=== PATIENT | male | born 1990 | race Caucasian/White ===

== ENCOUNTER 2017-05-16 17:49 | Emergency (ER) | payer BC ==
[2017-05-16 18:11] VITALS: BP 156/77; PULSE 86; RESP 18; TEMP 97.7
--- NOTE | 2017-05-16 18:25 | XR ---
EXAMINATION TYPE: XR foot complete LT DATE OF EXAM: 05/16/2017 COMPARISON: NONE HISTORY: Pain TECHNIQUE: 3 views FINDINGS: I see no fracture nor dislocation. Metatarsals appear intact. There are plantar and Stiven s calcaneal spurs. IMPRESSION: Calcaneal spurring. No fracture.
--- NOTE | 2017-05-16 18:42 | ED ---
Lower Extremity Injury HPI - General Chief Complaint: Extremity Injury, Lower Stated Complaint: left foot injury Time Seen by Provider: 05/16/17 18:22 Source: patient Mode of arrival: ambulatory Limitations: no limitations - History of Present Illness Initial Comments: 27-year-old male patient presents to emergency department today for evaluation of left foot pain. Patient states that around 11 AM this morning he was on a trailer when he actually stepped through a broken portion of the trailer injuring his left foot. Patient states that he has increased pain with ambulation. He denies any numbness or tingling to the foot. He denies any limitations with range of motion to the ankle or foot. Patient does have abrasions to the right argueta however states that he is not having pain in that area. Patient denies falling, hitting his head, or losing consciousness. Patient denies any headache, neck pain, back pain, chest pain, shortness of breath, dizziness, weakness, abdominal pain, nausea, vomiting, or difficulties with bowel movements or urination. Patient's tetanus is updated 4 years ago. - Related Data Allergies Allergy/AdvReac Type Severity Reaction Status Date / Time diphenhydramine Allergy Unknown Verified 05/16/17 18:05 [From [place]] Review of Systems ROS Statement: Those systems with pertinent positive or pertinent negative responses have been documented in the HPI. ROS Other: All systems not noted in ROS Statement are negative. Past Medical History Past Medical History: No Reported History History of Any Multi-Drug Resistant Organisms: None Reported Past Surgical History: No Surgical Hx Reported Past Psychological History: No Psychological Hx Reported Smoking Status: Never smoker Past Alcohol Use History: None Reported Past Drug Use History: None Reported General Exam Limitations: no limitations General appearance: alert, in no apparent distress Head exam: Present: atraumatic, normocephalic, normal inspection Eye exam: Present: normal appearance, PERRL, EOMI. Absent: scleral icterus, conjunctival injection, periorbital swelling ENT exam: Present: normal exam, mucous membranes moist Neck exam: Present: normal inspection, full ROM, other (Nontender, no step-off, no deformity to firm midline palpation of the posterior cervical spine. Full range of motion without pain or limitation.). Absent: tenderness, meningismus, lymphadenopathy Respiratory exam: Present: normal lung sounds bilaterally. Absent: respiratory distress, wheezes, rales, rhonchi, stridor Cardiovascular Exam: Present: regular rate, normal rhythm, normal heart sounds. Absent: systolic murmur, diastolic murmur, rubs, gallop, clicks GI/Abdominal exam: Present: soft, normal bowel sounds. Absent: distended, tenderness, guarding, rebound, rigid Extremities exam: Present: normal inspection, full ROM, normal capillary refill. Absent: tenderness, pedal edema, joint swelling, calf tenderness Back exam: Present: normal inspection, full ROM, other (Nontender, no step-off, no deformity to firm midline palpation of the thoracic and lumbar vertebrae. Full range of motion without pain or limitation.). Absent: tenderness, CVA tenderness (R), CVA tenderness (L), vertebral tenderness Neurological exam: Present: alert, oriented X3, CN II-XII intact Psychiatric exam: Present: normal affect, normal mood Skin exam: Present: warm, dry, intact, normal color. Absent: rash Course Vital Signs 05/16/17 18:06 Temperature 97.7 F Pulse Rate 86 Respiratory 18 Rate Blood Pressure 156/77 O2 Sat by Pulse 99 Oximetry Medical Decision Making - Medical Decision Making 27 old male patient presented for evaluation of left foot pain. Patient is complaining of pain with palpation over the dorsal aspect over the metatarsals. X-ray was obtained and impression by Dr. Cleveland reports no acute fracture nor dislocation. Did discuss possibility of an occult Lisfranc fracture with the patient. Did instruct him to follow up for repeat x-ray in 7-10 days if he continues to have any pain or issues. Carlin wrap applied to left foot. Did instruct him to follow-up with his primary care physician for recheck in 1-2 days. Instructed him to return immediately for any new, worsening, or concerning symptoms. Patient verbalizes understanding and agrees with this plan. - Radiology Data Radiology results: report reviewed, image reviewed 3 views of the left foot were obtained, shows no fracture or dislocation. Metatarsals appear intact. There are plantar and Achilles calcaneal spurs. Impression by Dr. Cleveland shows calcaneal spurring. No fracture. Disposition Clinical Impression: Foot sprain, Abrasion, right lower leg, initial encounter Disposition: HOME SELF-CARE Condition: Good Instructions: Foot Sprain (ED), Abrasion (ED) Additional Instructions: Keep wounds clean and dry. Wear Carlin wrap for comfort. Follow up for repeat x- ray in 7-10 days of pain symptoms persist. Rest, ice, and elevate the extremity. Apply ice 20 minutes at a times at least 4 times daily. Return immediately for any new, worsening, or concerning symptoms. Referrals: Jered Stringer MD [Primary Care Provider] - 1-2 days Marcos Becker DO [Doctor of Osteopathic Medicine] - 1-2 days Time of Disposition: 18:42
== END 2017-05-16 19:01 | disposition home or self-care (01) ==
LOC: EC 17:49
DX: S93.602A Unspecified sprain of left foot, initial encounter (principal); S80.811A Abrasion, right lower leg, initial encounter; M77.32 Calcaneal spur, left foot; Z88.8 Allergy status to other drugs, medicaments and biological substances; W17.2XXA Fall into hole, initial encounter
CPT/HCPCS: 99283

== ENCOUNTER → 2023-09-24 | Outpatient (CLI) | payer BC ==
[2023-09-24 15:06] LABS: Basophils # (A) 0.07 X 10*3/uL (0.00-0.10); Basophils % (A) 0.9 %; Eosinophils # (A) 0.18 X 10*3/uL (0.04-0.35); Eosinophils % (A) 2.3 %; HCT 44.4 % (39.6-50.0); HGB 14.4 g/dL (13.0-17.0); Lymphocytes # (A) 1.53 X 10*3/uL (0.90-5.00); Lymphocytes % (A) 19.4 %; MCH 28.5 pg (27.0-32.0); MCHC 32.4 g/dL (32.0-37.0); MCV 87.9 FL (80.0-97.0); Monocytes # (A) 0.53 X 10*3/uL (0.20-1.00); Monocytes % (A) 6.7 %; NRBC Per 100 WBC 0 X 10*3/uL (0.00-0.01); Neutrophils # (A) 5.45 X 10*3/uL (1.80-7.70); Neutrophils % (A) 69.2 %; Platelet Count 259 X 10*3/uL (140-440); RBC 5.05 X 10*6/uL (4.40-5.60); RDW 13.5 % (11.5-14.5); WBC 7.88 X 10*3/uL (4.50-10.00)
[2023-09-24 15:44] LABS: ALT 64 U/L (10-49); AST 35 U/L (14-35); Albumin 4.3 g/dL (3.8-4.9); Albumin/Globulin Ratio 1.95 Ratio (1.60-3.17); Alkaline Phosphatase 67 U/L (41-126); BUN/Creat Ratio 14.82 Ratio (12.00-20.00); Blood Urea Nitrogen 16.3 mg/dL (9.0-27.0); Calcium 8.4 mg/dL (8.7-10.3); Carbon Dioxide 22.6 mmol/L (21.6-31.8); Chloride 104 mmol/L (96-109); Globulin 2.2 g/dL (1.6-3.3); Glucose 113 mg/dL (70-110); Potassium 4.9 mmol/L (3.5-5.5); Sodium 139 mmol/L (135-145); Total Bilirubin 0.4 mg/dL (0.3-1.2); Total Protein 6.5 g/dL (6.2-8.2)
[2023-09-24 16:14] LABS: Prealbumin 21.1 mg/dL (18.0-42.0)
== END | disposition home or self-care (01) ==
LOC: LABWHC1 11:15
PROVIDERS: ATTEND Internal Medicine
DX: Z00.01 Encounter for general adult medical examination with abnormal findings (principal); E55.9 Vitamin D deficiency, unspecified; R73.9 Hyperglycemia, unspecified; R53.83 Other fatigue
CPT/HCPCS: 36415; 80053; 82306; 83036; 84134; 84443; 85025

== ENCOUNTER 2023-12-14 00:41 | Emergency (ER) | payer BC ==
[2023-12-14 01:12] VITALS: TEMP 97.7
--- NOTE | 2023-12-14 02:29 | ED ---
ENT HPI - General Chief complaint: ENT Stated complaint: Left Ear Ache Time Seen by Provider: 12/14/23 01:41 Source: patient Mode of arrival: ambulatory Limitations: no limitations - History of Present Illness Initial comments: 33-year-old male presenting to the ED with a chief complaint of left ear pain. Patient states today has had some intermittent pain of his left ear however tonight around 9 started to become worse and more constant in nature. Some associated muffled hearing as well. Also does note some associated sore throat with this as well. No chest pain shortness of breath. No fever or chills. No other complaints at this time. - Related Data Previous Rx's Medication Instructions Recorded Acetaminophen Tab [Tylenol] 500 mg PO Q6H PRN #30 tablet 12/14/23 Amoxic-Pot Clav 875-125Mg 1 tab PO Q12HR 7 Days #14 tab 12/14/23 [Augmentin 875-125] Ibuprofen [Motrin] 600 mg PO Q8HR PRN #30 tab 12/14/23 Allergies Allergy/AdvReac Type Severity Reaction Status Date / Time diphenhydramine Allergy Unknown Verified 12/14/23 01:09 [From Benadryl] Review of Systems ROS Statement: Those systems with pertinent positive or pertinent negative responses have been documented in the HPI. ROS Other: All systems not noted in ROS Statement are negative. Past Medical History Past Medical History: No Reported History History of Any Multi-Drug Resistant Organisms: None Reported Past Surgical History: No Surgical Hx Reported Past Psychological History: No Psychological Hx Reported Smoking Status: Never smoker Past Alcohol Use History: None Reported Past Drug Use History: None Reported General Exam Limitations: no limitations General appearance: alert, in no apparent distress ENT exam: Present: other (Left TM intact, erythematous, nonbulging. Some erythema of the outer ear as well. No mastoid process tenderness to palpation or overlying warmth, erythema, edema, tenderness to palpation.) Neck exam: Present: normal inspection Respiratory exam: Present: normal lung sounds bilaterally Cardiovascular Exam: Present: regular rate, normal rhythm GI/Abdominal exam: Present: soft Neurological exam: Present: alert, oriented X3 Skin exam: Present: warm, dry Course Vital Signs 12/14/23 01:07 Temperature 97.7 F Pulse Rate 69 Respiratory 18 Rate Blood Pressure 167/77 O2 Sat by Pulse 95 Oximetry Medical Decision Making - Medical Decision Making Was pt. sent in by a medical professional or institution (EVELYNE Callaway, [employer] READING TEACHER, urgent care, hospital, or [facility]...) When possible be specific @ -No Did you speak to anyone other than the patient for history (EMS, parent, family, police, friend...)? What history was obtained from this source @ -No Did you review nursing and triage notes (agree or disagree)? Why? @ -I reviewed and agree with nursing and triage notes Were old charts reviewed (outside hosp., previous admission, EMS record, old EKG, old radiological studies, urgent care reports/EKG's, [facility] records)? Report findings @ -No old charts were reviewed Differential Diagnosis (chest pain, altered mental status, abdominal pain women, abdominal pain men, vaginal bleeding, weakness, fever, dyspnea, syncope, headache, dizziness, GI bleed, back pain, seizure, CVA, palpatations, mental health, musculoskeletal)? @ -Otitis media, otitis externa, malignant otitis externa. This not meant to be an all-inclusive list. EKG interpreted by me (3pts min.). @ -None X-rays interpreted by me (1pt min.). @ -None done CT interpreted by me (1pt min.). @ -None done U/S interpreted by me (1pt. min.). @ -None done What testing was considered but not performed or refused? (CT, X-rays, U/S, labs )? Why? @ -None What meds were considered but not given or refused? Why? @ -None Did you discuss the management of the patient with other professionals (professionals i.e. EVEYLNE Callaway, [employer], lab, RT, psych nurse, social work lecturer, rotary envelope machine operator, teacher, chemical instrumentation officer, caser up)? Give summary @ -No Was smoking cessation discussed for >3mins.? @ -No Was critical care preformed (if so, how long)? @ -No Were there social determinants of health that impacted care today? How? (Homelessness, low income, unemployed, alcoholism, drug addiction, transportation, low edu. Level, literacy, decrease access to med. care, [facility], rehab)? @ -No Was there de-escalation of care discussed even if they declined (Discuss DNR or withdrawal of care, Hospice)? DNR status @ -No What co-morbidities impacted this encounter? (DM, HTN, Smoking, COPD, CAD, Cancer, CVA, ARF, Chemo, Hep., AIDS, mental health diagnosis, sleep apnea, morbid obesity)? @ -None Was patient admitted / discharged? Hospital course, mention meds given and route, prescriptions, significant lab abnormalities, going to OR and other pertinent info. @ -Discharge 53-year-old male presented to the ED with complaints of left ear pain with some associated muffled hearing for 1 day. Serology panel unremarkable. On examination left TM intact erythematous, nonbulging. Symptoms likely viral in nature however patient would like antibiotic coverage. Provided prescription for Augmentin. Discharged home in stable condition with instructions to follow- up with his PCP. Discussed return precautions with patient who verbalized agreement. Undiagnosed new problem with uncertain prognosis? @ -No Drug Therapy requiring intensive monitoring for toxicity (Heparin, Nitro, Insulin, Cardizem)? @ -No Were any procedures done? @ -No Diagnosis/symptom? @ -Otitis media Acute, or Chronic, or Acute on Chronic? @ -Acute Uncomplicated (without systemic symptoms) or Complicated (systemic symptoms)? @ -Uncomplicated Side effects of treatment? @ -No Exacerbation, Progression, or Severe Exacerbation? @ -No Poses a threat to life or bodily function? How? (Chest pain, USA, ID, pneumonia, PE, COPD, DKA, ARF, appy, cholecystitis, CVA, Diverticulitis, Homicidal, Suicidal, threat to staff... and all critical care pts) @ -No - Lab Data Lab Results 12/14/23 Range/Units 02:08 Influenza Type A (PCR) Not Detected (Not Detectd) Influenza Type B (PCR) Not Detected (Not Detectd) RSV (PCR) Not Detected (Not Detectd) SARS-CoV-2 (PCR) Not Detected (Not Detectd) Disposition Clinical Impression: Left ear pain Disposition: HOME SELF-CARE Condition: Good Additional Instructions: Please return to the Emergency Department if symptoms worsen or any other concerns. Please follow-up with your PCP. Prescriptions: Amoxic-Pot Clav 875-125Mg [Augmentin 875-125] 1 tab PO Q12HR 7 Days #14 tab Ibuprofen [Motrin] 600 mg PO Q8HR PRN #30 tab PRN Reason: Pain Acetaminophen Tab [Tylenol] 500 mg PO Q6H PRN #30 tablet PRN Reason: Pain Is patient prescribed a controlled substance at d/c from ED?: No Referrals: Mary Hurley MD [Primary Care Provider] - 1-2 days Time of Disposition: 03:35
[2023-12-14] MEDS: KETOROLAC 15 MG/ML 1 ML VIAL IM STA (02:48)
[2023-12-14] MEDS: ACETAMINOPHEN TAB 500 MG TAB PO STA (02:48)
[2023-12-14] MEDS: AMOXIC-POT CLAV 875MG STARTER PACK 2 TAB BTL PO STA (03:35)
[2023-12-14 03:54] VITALS: BP 172/77; PULSE 75; RESP 20
== END 2023-12-14 05:36 | disposition home or self-care (01) ==
LOC: EC 00:41
DX: H92.02 Otalgia, left ear (principal)
CPT/HCPCS: 99283; 87636; 96372; J1885

== ENCOUNTER → 2025-02-14 | Outpatient (CLI) | payer BC ==
[2025-02-14 10:20] LABS: Basophils # (A) 0.06 10*3/uL (0.00-0.10); Basophils % (A) 0.9 %; Eosinophils # (A) 0.14 10*3/uL (0.04-0.35); HCT 45.2 % (39.6-50.0); Lymphocytes # (A) 1.39 10*3/uL (0.90-5.00); Lymphocytes % (A) 20.2 %; MCH 30.2 pg (27.0-32.0); MCHC 33.2 g/dL (32.0-37.0); MCV 90.9 fL (80.0-97.0); Mean Platelet Volume 10.2 fL (9.5-12.2); Monocytes # (A) 0.43 10*3/uL (0.20-1.00); Monocytes % (A) 6.2 %; Neutrophils # (A) 4.83 10*3/uL (1.80-7.70); Neutrophils % (A) 70.1 %; Platelet Count 237 10*3/uL (140-440); RBC 4.97 10*6/uL (4.40-5.60); RDW 13.2 % (11.5-14.5); WBC 6.89 10*3/uL (4.50-10.00)
[2025-02-14 16:50] LABS: Chol/HDL Ratio 4.28 Ratio
[2025-02-14 16:51] LABS: % Iron Saturation 17.48 (15.00-50.00); ALT 31 U/L (10-49); AST 24 U/L (14-35); Albumin 4.4 g/dL (3.8-4.9); Albumin/Globulin Ratio 1.91 Ratio (1.60-3.17); Alkaline Phosphatase 94 U/L (41-126); Blood Urea Nitrogen 14.4 mg/dL (9.0-27.0); Calcium 9.6 mg/dL (8.7-10.3); Carbon Dioxide 26.3 mmol/L (21.6-31.8); Chloride 104 mmol/L (96-109); Globulin 2.3 g/dL (1.6-3.3); Glucose 93 mg/dL (70-110); Iron 61 UG/DL (65-175); LDL Cholesterol,Calculated 89.5 mg/dL (0.0-131.0); Potassium 4.2 mmol/L (3.5-5.5); Sodium 142 mmol/L (135-145); Total Bilirubin 0.5 mg/dL (0.3-1.2); Total Iron Binding Capacity 349 UG/DL (228-460); Total Protein 6.7 g/dL (6.2-8.2)
[2025-02-14 18:56] LABS: Microalbumin Creatinine Ratio <5 mg/g Cr (0-30)
[2025-02-15 12:21] LABS: Zinc, Serum 78 ug/dL (60-130)
[2025-02-16 06:57] LABS: Vitamin A 54 ug/dL (38-106)
== END | disposition home or self-care (01) ==
LOC: LABWHC1 09:34
PROVIDERS: ATTEND Surgery
DX: Z00.01 Encounter for general adult medical examination with abnormal findings (principal); E11.65 Type 2 diabetes mellitus with hyperglycemia; E55.9 Vitamin D deficiency, unspecified; E56.9 Vitamin deficiency, unspecified; K90.9 Intestinal malabsorption, unspecified; D64.9 Anemia, unspecified
CPT/HCPCS: 36415; 80053; 80061; 82043; 82306; 82525; 82570; 82607; 82746; 83036; 83540; 83550; 84466; 84590; 84630; 85025